=== PATIENT | male | born 1975 | race Caucasian/White ===

== ENCOUNTER 2017-05-03 03:39 | Emergency (ER) | payer OTHER ==
[~2017-05-03] VITALS: Ht 172.7 cm; Wt 85.0 kg
[2017-05-03] MEDS ORDERED: VITA100T54 PO (03:57)
[2017-05-03] MEDS ORDERED: FAMO20TA2 PO (03:57)
[2017-05-03] MEDS ORDERED: ALLE12TA2 PO (03:57)
[2017-05-03] MEDS ORDERED: FOLI1TAB6 (03:57)
[2017-05-03] MEDS ORDERED: LORazepam 1 MG TAB PO PRN (04:15)
[2017-05-03] MEDS ORDERED: LORazepam 2 MG TAB PO PRN (04:15)
[2017-05-03] MEDS ORDERED: ONDANSETRON ODT 4 MG TAB PO PRN (04:15)
[2017-05-03] MEDS ORDERED: ACETAMINOPHEN 325 MG TAB PO PRN (04:15)
[2017-05-03] MEDS ORDERED: FLUMAZENIL 0.5 MG/5 ML VIAL IV PUSH PRN (04:15)
[2017-05-03] MEDS ORDERED: LORazepam 2 MG/ML VIAL IV PUSH PRN ×4 (04:15)
[2017-05-03 04:36] VITALS: BP 128/71; PULSE 75; RESP 18; TEMP 98.4; O2SAT 97
--- NOTE | 2017-05-03 04:39 | PD ---
HPI Chief Complaint: Psychiatric Symptoms Time Seen by Provider: 04:15 Travel History International Travel<30 days: No Contact w/Intl Traveler<30days: No History of Present Illness HPI Patient is a 42-year-old male transferred from [facility] under [facility] act for psychiatric evaluation. Patient reports feeling depressed and suicidal. Patient reports daily alcohol consumption. He also reported smoking K2. He reported to me that he told somebody that "maybe he should just drink himself to ". He reports that it was taken out of context although he continues to say he is depressed and suicidal. Patient reports feeling as if he is starting to go into DTs. He also reports feeling as if he has indigestion. He reports that he feels this way often. He denies any chest pain , shortness of breath, fever, chills, abdominal pain. The symptoms are constant , symptom severity is mild to moderate. Patient reports that he has had no previous suicide attempt. He has no other complaints at this time. [facility] Past Medical History Anxiety: Yes Depression: Yes GERD: Yes Social History Alcohol Use: Yes (DAILY) Tobacco Use: Yes Substance Use: Yes (K2) Allergies-Medications (Allergen,Severity, Reaction): Coded Allergies: cefadroxil (Verified Allergy, Unknown, Nausea/Vomiting, 05/03/17) Reported Meds & Prescriptions Reported Meds & Active Scripts Active Reported Talia-D 12 Hour Allergy (Fexofenadine-Pseudoephedrine ER 12 HR) 60-120 Mg Gerald 1 Tab PO BID Famotidine 20 Mg Tab 20 Mg PO BID Vitamin B-1 (Thiamine HCl) 100 Mg Tab 100 Mg PO DAILY Folic Acid 1 Mg Tablet 1 Mg DAILY Review of Systems Except as stated in HPI: all other systems reviewed are Neg Psychiatric: Positive: Depression, Suicidal Ideations, Substance Abuse Physical Exam Narrative GENERAL: Well-developed, well-nourished, alert male. Resting comfortably in no acute distress. SKIN: Warm and dry. Skin is tanned on face and arms, he has a laceration to his right forehead which was repaired at previous facility. HEAD: Atraumatic. Normocephalic. EYES: Pupils equal and round. No scleral icterus. No injection or drainage. ENT: No nasal bleeding or discharge. Mucous membranes pink and moist. NECK: Trachea midline. No JVD. CARDIOVASCULAR: Regular rate and rhythm. RESPIRATORY: No accessory muscle use. Clear to auscultation. Breath sounds equal bilaterally. GASTROINTESTINAL: Abdomen soft, non-tender, nondistended. Hepatic and splenic margins not palpable. MUSCULOSKELETAL: Extremities without clubbing, cyanosis, or edema. No obvious deformities. NEUROLOGICAL: Awake and alert. No obvious cranial nerve deficits. Motor grossly within normal limits. Five out of 5 muscle strength in the arms and legs. Normal speech. PSYCHIATRIC: Appropriate mood and affect; insight and judgment normal. Data Data Last Documented VS Vital Signs Date Time Temp Pulse Resp B/P (MAP) Pulse Ox O2 Delivery O2 Flow Rate FiO2 05/03/17 04:36 98.4 75 18 128/71 (90) 97 Room Air Orders Orders Psych Screen (05/03/17 04:05) Diet Regular Basic (05/03/17 Breakfast) Alcohol Withdrawal Asmt-Ciwa ONCE (05/03/17 04:15) Ondansetron Odt (Zofran Odt) (05/03/17 04:15) Acetaminophen (Tylenol) (05/03/17 04:15) Flumazenil Inj (Romazicon Inj) (05/03/17 04:15) Lorazepam (Ativan) (05/03/17 04:15) Lorazepam Inj (Ativan Inj) (05/03/17 04:15) Lorazepam (Ativan) (05/03/17 04:15) Lorazepam Inj (Ativan Inj) (05/03/17 04:15) Lorazepam Inj (Ativan Inj) (05/03/17 04:15) Lorazepam Inj (Ativan Inj) (05/03/17 04:15) Calcium Carbonate Chew (Tums Chew) (05/03/17 04:45) MDM Medical Decision Making Medical Screen Exam Complete: Yes Emergency Medical Condition: Yes Medical Record Reviewed: Yes Interpretation(s) Vital Signs Date Time Temp Pulse Resp B/P (MAP) Pulse Ox O2 Delivery O2 Flow Rate FiO2 05/03/17 04:36 98.4 75 18 128/71 (90) 97 Room Air Differential Diagnosis Suicidal ideations vs metabolic abnormality vs substance abuse vs other Narrative Course Patient was transferred from [facility] in [place]. Medical records reviewed, they performed a CT scan of his brain due to a fall he sustained while intoxicated, this was negative. CBC with a white blood cell count 15.93 Chemistry with an anion gap of 16, patient was given IV fluids at [facility] Urine drug screen was positive for benzodiazepines. Alcohol level at 1730 on 05/02/17 was 279 Patient felt as if he was going into DTs, CIWA protocol was initiated. Patient is medically cleared for psychiatric evaluation Diagnosis Primary Impression: Medical clearance for psychiatric admission Additional Impression: Alcohol abuse Condition: Stable Aimee De La Rosa May 03, 2017 04:39
[2017-05-03] MEDS ORDERED: CALCIUM CARBONATE 500 MG CHEWABLE TAB CHEW ONE (04:45)
[2017-05-03 06:49] VITALS: BP 128/70; PULSE 78; RESP 18; O2SAT 97
--- NOTE | 2017-05-03 09:45 | PD ---
Physical Exam Date Seen by Provider: May 03, 2017 Time Seen by Provider: 09:43 Narrative 42-year-old male previously [facility] and medically cleared for psychiatric evaluation, has been seen and evaluated by Dr. Lane, and felt psychiatrically stable for discharge. Patient is to follow-up as per psychiatric note. Patient remains medically stable for discharge. Data Data Last Documented VS Vital Signs Date Time Temp Pulse Resp B/P (MAP) Pulse Ox O2 Delivery O2 Flow Rate FiO2 05/03/17 06:49 78 18 128/70 (89) 97 Room Air 05/03/17 04:36 98.4 Orders Orders Psych Screen (05/03/17 04:05) Diet Regular Basic (05/03/17 Breakfast) Alcohol Withdrawal Asmt-Ciwa ONCE (05/03/17 04:15) Ondansetron Odt (Zofran Odt) (05/03/17 04:15) Acetaminophen (Tylenol) (05/03/17 04:15) Flumazenil Inj (Romazicon Inj) (05/03/17 04:15) Lorazepam (Ativan) (05/03/17 04:15) Lorazepam Inj (Ativan Inj) (05/03/17 04:15) Lorazepam (Ativan) (05/03/17 04:15) Lorazepam Inj (Ativan Inj) (05/03/17 04:15) Lorazepam Inj (Ativan Inj) (05/03/17 04:15) Lorazepam Inj (Ativan Inj) (05/03/17 04:15) Calcium Carbonate Chew (Tums Chew) (05/03/17 04:45) MDM Medical Record Reviewed: Yes Supervised Visit with PATRICK: Yes Narrative Course 42-year-old male previously [facility] acted and medically cleared for psychiatric evaluation, has been seen and evaluated by Dr. Lane, and felt psychiatrically stable for discharge. Patient is to follow-up as per psychiatric note. Patient remains medically stable for discharge. Diagnosis Primary Impression: Medical clearance for psychiatric admission Additional Impression: Alcohol abuse Patient Instructions: General Instructions Disposition: 01 DISCHARGE HOME Condition: Stable Anam Lewis May 03, 2017 09:45
--- NOTE | 2017-05-03 12:20 | PD.PSY.CON ---
Provisional Diagnosis Admission Date Bowie I. Alcohol induced mood disorder, alcohol use disorder, K2 use disorder Bowie II. Deferred Bowie III. No significant medical history History of Present Illness Service Psychiatry Consult Requested By ER Reason for Consult On the act Primary Care Physician No Primary Care Physician HPI Late entry. Patient seen this morning at 7:30 AM The patient is a 42-year-old woman, domiciled in [facility] with his parents, single, unemployed, with psychiatric history of alcohol and K2 use disorder, no previous psychiatric hospitalizations, no previous suicidal attempts, no significant medical history, who was transferred from [facility] for psychiatric evaluation. Patient reports feeling depressed and suicidal in the context of acute alcohol intoxication. Patient says that he was intoxicated when he expressed suicidal ideation. Patient reports daily alcohol consumption, denies withdrawal symptoms. He also reported smoking K2 sometimes. He reported to me that he told somebody that "maybe he should just drink himself to , but I was completely drunk, that is not how I feel now ". He reports that it was taken out of context although he continues to say he is depressed and suicidal. At this moment the patient denies depressive symptoms, denies anxiety, denies tressa and psychosis. He denies suicidal and homicidal ideation, he denies visual and auditory hallucinations. The patient is future oriented, able to share goals for the future, insightful about his K2 and alcoholism. Review of Systems Constitutional: DENIES: Diaphoretic episodes, Fatigue, Fever, Weight gain, Weight loss, Chills, Dizziness, Change in appetite, Night Sweats Endocrine: DENIES: Heat/cold intolerance, Polydipsia, Polyuria, Polyphagia Eyes: DENIES: Blurred vision, Diplopia, Eye inflammation, Eye pain, Vision loss , Photosensitivity, Double Vision Ears, nose, mouth, throat: DENIES: Tinnitus, Hearing loss, Vertigo, Nasal discharge, Oral lesions, Throat pain, Hoarseness, Ear Pain, Running Nose, Epistaxis, Sinus Pain, Toothache, Odynophagia Respiratory: DENIES: Apneas, Cough, Snoring, Wheezing, Hemoptysis, Sputum production, Shortness of breath Cardiovascular: DENIES: Chest pain, Palpitations, Syncope, Dyspnea on Exertion , PND, Lower Extremity Edema, Orthopnea, Claudication Gastrointestinal: DENIES: Abdominal pain, Black stools, Bloody stools, Constipation, Diarrhea, Nausea, Vomiting, Difficulty Swallowing, Anorexia Genitourinary: DENIES: Sexual dysfunction, Urinary frequency, Urinary incontinence, Urgency, Hematuria, Dysuria, Nocturia, Penile Discharge, Testicular Pain, Testicular Swelling Musculoskeletal: DENIES: Joint pain, Muscle aches, Stiffness, Joint Swelling, Back pain, Neck pain Integumentary: DENIES: Abnormal pigmentation, Nail changes, Pruritus, Rash Hematologic/lymphatic: DENIES: Bruising, Lymphadenopathy Immunologic/allergic: DENIES: Eczema, Urticaria Neurologic: DENIES: Abnormal gait, Headache, Localized weakness, Paresthesias, Seizures, Speech Problems, Tremor, Poor Balance Psychiatric: DENIES: Anxiety, Confusion, Mood changes, Depression, Hallucinations, Agitation, Suicidal Ideation, Homicidal Ideation, Delusions Past Family Social History Coded Allergies: cefadroxil (Verified Allergy, Unknown, Nausea/Vomiting, 05/03/17) Reported Medications Fexofenadine-Pseudoephedrine ER 12 HR (Talia-D 12 Hour Allergy) 60-120 Mg Gerald, 1 TAB PO BID for Allergy Management, #60 TAB 0 Refills 05/03/17 Famotidine (Famotidine) 20 Mg Tab, 20 MG PO BID, #60 TAB 0 Refills 05/03/17 Thiamine (Vitamin B-1) 100 Mg Tab, 100 MG PO DAILY for Nutritional Supplement, TAB 0 Refills 05/03/17 Folic Acid (Folic Acid) 1 Mg Tablet, 1 MG DAILY 05/03/17 Current Medications Medications (Trade) Dose Ordered Sig/Lizet Route Start Time Stop Time Status Last Admin (Zofran Odt) 4 mg Q8H PRN PO 05/03/17 04:15 (Tylenol) 650 mg Q4H PRN PO 05/03/17 04:15 (Romazicon Inj) 0.2 mg Q1M PRN IV PUSH 05/03/17 04:15 (Ativan) 1 mg Q4H PRN PO 05/03/17 04:15 (Ativan Inj) 1 mg Q4H PRN IV PUSH 05/03/17 04:15 (Ativan) 2 mg Q2H PRN PO 05/03/17 04:15 (Ativan Inj) 2 mg Q2H PRN IV PUSH 05/03/17 04:15 (Ativan Inj) 2 mg Q1H PRN IV PUSH 05/03/17 04:15 (Ativan Inj) 2 mg Q15M PRN IV PUSH 05/03/17 04:15 Family Psych History No family psychiatric history Social History Patient was born and raised in [place], he lives with his parents, he is unemployed, single, his highest level of education is some college Patient's Strengths (min. 2) Contemplation stage Physical Exam Vital Signs Vital Signs Date Time Temp Pulse Resp B/P (MAP) Pulse Ox O2 Delivery O2 Flow Rate FiO2 05/03/17 06:49 78 18 128/70 (89) 97 Room Air 05/03/17 04:36 98.4 Mental Status Examination Appearance: Appropriate Consciousness: Alert Orientation: x4 Motor Activity: Normal gait Speech: Unremarkable Language: Adequate Fund of Knowledge: Adequate Attention and Concentration: Adequate Memory: Unremarkable Mood: Appropriate Affect: Appropriate Thought Process & Associations: Intact Thought Content: Appropriate Hallucination Type: None Delusion Type: None Suicidal Ideation: No Suicidal Plan: No Suicidal Intention: No Homicidal Ideation: No Homicidal Plan: No Homicidal Intention: No Insight: Adequate Judgment: Adequate Assessment & Plan Problem List: (1) Alcohol abuse ICD Codes: F10.10 - Alcohol abuse, uncomplicated Status: Acute Assessment & Plan: On psychiatric evaluation today the patient doesn't present any evidence of depression, anxiety, tressa or psychosis. The patient denies suicidal and homicidal ideation, he denies visual and auditory hallucinations. He is documented suicidal statement yesterday was secondary to acute alcohol intoxication, but patient is not acutely sober, he does not meet criteria for involuntary psychiatric admission. Tip at will be lifted. Assessment & Plan Estimated LOS: Isaias Roblero MD May 03, 2017 12:20
== END 2017-05-03 14:55 | disposition home or self-care (01) ==
LOC: NEPJ 03:39
DX: F10.10 Alcohol abuse, uncomplicated (principal); F19.10 Other psychoactive substance abuse, uncomplicated; Z72.0 Tobacco use
CPT/HCPCS: 99284